=== PATIENT | male | born 1995 | race American Indian/Alaskan Native ===

== ENCOUNTER 2018-04-14 23:47 | Emergency (ER) | payer OTHER ==
--- NOTE | 2018-04-15 05:58 | Emergency Department Report ---
ED ENT HPI - General Chief complaint: Earache Stated complaint: EARS STOPPED UP WITH FLUID Time Seen by Provider: 04/15/18 05:53 Source: patient Mode of arrival: Ambulatory Limitations: No Limitations - History of Present Illness Initial comments: pt is a 23 y/o aam with hx recurrent AOM who presents for bilat ear pain x 2 days , there is no fever no chills states "It feels like fluid in both my ears, syptoms exacerbatd by position and movement symptom relieved by rest MD complaint: ear pain Onset/Timin -: days(s) Location: R ear, L ear Severity: moderate Severity scale (0 -10): 5 Quality: aching Consistency: constant Improves with: rest Worsens with: position, movement Context- Ear: other (recurring aom and wax impaction) Associated Symptoms: tinnitus, discharge from ear - Related Data Previous Rx's Medication Instructions Recorded Last Taken Type Cetirizine HCl [ZyrTEC] 10 mg PO DAILY #30 capsule 11/27/15 Unknown Rx Fluticasone [Flonase] 1 spray NS QDAY #1 bottle 11/27/15 Unknown Rx Amoxicillin/Potassium Clav 1 each PO BID 10 Days #20 tablet 04/15/18 Unknown Rx [Augmentin 875-125 Tablet] Neomy/Polymyx B/Hc Otic Susp 4 drops DS TID 10 Days #10 ml 04/15/18 Unknown Rx [Cortisporin (Otic) Susp] Allergies Allergy/AdvReac Type Severity Reaction Status Date / Time No Known Allergies Allergy Verified 11/27/15 07:38 ED Dental HPI - General Chief complaint: Earache Stated complaint: EARS STOPPED UP WITH FLUID Time Seen by Provider: 04/15/18 05:53 Source: patient Mode of arrival: Ambulatory Limitations: No Limitations - Related Data Previous Rx's Medication Instructions Recorded Last Taken Type Cetirizine HCl [ZyrTEC] 10 mg PO DAILY #30 capsule 11/27/15 Unknown Rx Fluticasone [Flonase] 1 spray NS QDAY #1 bottle 11/27/15 Unknown Rx Amoxicillin/Potassium Clav 1 each PO BID 10 Days #20 tablet 04/15/18 Unknown Rx [Augmentin 875-125 Tablet] Neomy/Polymyx B/Hc Otic Susp 4 drops DS TID 10 Days #10 ml 04/15/18 Unknown Rx [Cortisporin (Otic) Susp] Allergies Allergy/AdvReac Type Severity Reaction Status Date / Time No Known Allergies Allergy Verified 11/27/15 07:38 ED Review of Systems ROS: Stated complaint: EARS STOPPED UP WITH FLUID Other details as noted in HPI Constitutional: denies: chills, fever Eyes: denies: eye pain, eye discharge, vision change ENT: ear pain Respiratory: denies: cough, shortness of breath, wheezing Cardiovascular: denies: chest pain, palpitations Endocrine: no symptoms reported Gastrointestinal: denies: abdominal pain, nausea, diarrhea Genitourinary: denies: urgency, dysuria Musculoskeletal: denies: back pain, joint swelling, arthralgia Skin: as per HPI Neurological: denies: headache, weakness, paresthesias Psychiatric: denies: anxiety, depression Hematological/Lymphatic: denies: easy bleeding, easy bruising ED Past Medical Hx - Past Medical History Previous Medical History?: No - Surgical History Past Surgical History?: No - Social History Smoking Status: Never Smoker Substance Use Type: None - Medications Home Medications: Home Medications Medication Instructions Recorded Confirmed Last Taken Type Cetirizine HCl [ZyrTEC] 10 mg PO DAILY #30 capsule 11/27/15 Unknown Rx Fluticasone [Flonase] 1 spray NS QDAY #1 bottle 11/27/15 Unknown Rx Amoxicillin/Potassium Clav 1 each PO BID 10 Days #20 tablet 04/15/18 Unknown Rx [Augmentin 875-125 Tablet] Neomy/Polymyx B/Hc Otic Susp 4 drops DS TID 10 Days #10 ml 04/15/18 Unknown Rx [Cortisporin (Otic) Susp] ED Physical Exam - General Limitations: No Limitations General appearance: alert, in no apparent distress - Head Head exam: Present: atraumatic, normocephalic - Eye Eye exam: Present: normal appearance, PERRL, EOMI Pupils: Present: normal accommodation - ENT ENT exam: Present: normal orophraynx, mucous membranes moist, normal external ear exam - Expanded ENT Exam Expanded Ear exam: Present: normal external inspection, other (no mastoid tendernes ) TM/Canal exam: Erythema: Right TM, Left TM, Loss of Landmarks: Right TM, Left TM, Canal Discharge: Left TM (yellow ), Canal Tenderness: Left TM, Right TM Mouth exam: Present: normal external inspection, tongue normal. Absent: trismus Throat exam: Positive: normal inspection, other (uvula midline no exudate no lesion no swelling no stridor ). Negative: tonsillar erythema, tonsillomegaly, tonsillar exudate, R peritonsillar mass, L peritonsillar mass - Neck Neck exam: Present: normal inspection, full ROM. Absent: tenderness, meningismus, lymphadenopathy, thyromegaly - Respiratory Respiratory exam: Present: normal lung sounds bilaterally. Absent: respiratory distress, wheezes, stridor, chest wall tenderness - Cardiovascular Cardiovascular Exam: Present: regular rate, normal rhythm, normal heart sounds. Absent: systolic murmur, diastolic murmur, rubs, gallop - GI/Abdominal GI/Abdominal exam: Present: soft, normal bowel sounds. Absent: tenderness, mass, hernia - Rectal Rectal exam: Present: deferred - Extremities Exam Extremities exam: Present: normal inspection - Back Exam Back exam: Present: normal inspection - Neurological Exam Neurological exam: Present: alert, oriented X3, CN II-XII intact, normal gait, reflexes normal - Psychiatric Psychiatric exam: Present: normal affect, normal mood - Skin Skin exam: Present: warm, dry, intact, normal color. Absent: rash ED Course Vital Signs 04/15/18 00:25 Temperature 97.7 F Pulse Rate 75 Respiratory 20 Rate Blood Pressure 122/55 O2 Sat by Pulse 99 Oximetry ED Medical Decision Making - Medical Decision Making This is bilat AOM with loss of land [place] due to swelling there is no loss of hearing mild tinnitis no masoid tenderness no throat pain, ciprodex, and amoxicillin po ibuprofen, follow up ENT in 2 days follow up with pcp in 2-3 days pt verbalized agreement and understanding of same. will be dc'd to home in [facility] [place] at this time. Critical care attestation.: If time is entered above; I have spent that time in minutes in the direct care of this critically ill patient, excluding procedure time. ED Disposition Clinical Impression: AOM (acute otitis media) Qualifiers: Otitis media type: serous Laterality: bilateral Recurrence: recurrent Qualified Code(s): H65.06 - Acute serous otitis media, recurrent, bilateral Disposition: DC-01 TO HOME OR SELFCARE Is pt being admited?: No Does the pt Need Aspirin: No Condition: Stable Instructions: Otitis Media (ED) Prescriptions: Amoxicillin/Potassium Clav [Augmentin 875-125 Tablet] 1 each PO BID 10 Days #20 tablet Neomy/Polymyx B/Hc Otic Susp [Cortisporin (Otic) Susp] 4 drops DS TID 10 Days #10 ml Referrals: LINDA FAUST MD [Staff Physician] - 3-5 Days [facility] [Outside] - 3-5 Days Forms: Work/School Release Form(ED) Time of Disposition: 06:07
[2018-04-15 06:17] VITALS: BP 116/72
== END 2018-04-15 06:18 | disposition home or self-care (01) ==
LOC: ED 23:47
DX: H66.93 Otitis media, unspecified, bilateral (principal)
CPT/HCPCS: 99282